=== PATIENT | female | born 1935 | race Caucasian/White ===

== ENCOUNTER 2021-04-30 10:41 | Emergency (ER) | payer MEDICAID, MEDICARE ==
--- NOTE | 2021-04-30 12:26 | EDM.PDOC ---
ED HPI GENERAL MEDICAL PROBLEM - General Chief Complaint: Upper Extremity Injury/Pain Stated Complaint: RIGHT ARM PAIN Time Seen by Provider: 04/30/21 10:48 Source of Information: Reports: Patient History Limitations: Reports: No Limitations - History of Present Illness INITIAL COMMENTS - FREE TEXT/NARRATIVE: Patient presents with a friend. They are visiting a relative here in [place]. The patient states that on Thursday she started with a throbbing pain in her right shoulder and also on the outer part of her right elbow. She has a history of osteoarthritis of both shoulders and actually has steroid injections scheduled at [facility] in her hometown of [facility]. Injections are scheduled May 08. The pain is aggravated by certain movements and positio ns. It is particularly bad at night and she states last night it kept her up all night. He has not been feverish and has not noticed any redness or swelling in the affected areas. She denies new neck pain--has had "neck pain my entire life", tingling or numbness, chest pain or shortness of breath. right forearm Pain Score (Numeric/FACES): 10 - Related Data Allergies Allergy/AdvReac Type Severity Reaction Status Date / Time fentanyl Allergy Other Verified 04/30/21 12:03 meperidine [From Demerol] Allergy Other Verified 04/30/21 12:03 promethazine [From Phenergan] Allergy Hyperactivi Verified 04/30/21 11:59 ty propoxyphene Allergy Other Verified 04/30/21 12:03 Home Meds: Home Meds Apixaban [Eliquis] 2.5 mg PO BID 04/30/21 [History] Gabapentin [Neurontin] 1 tab PO ASDIRECTED 04/30/21 [History] Hydrocodone/Acetaminophen [HYDROcodone-Acetaminophen 5-325 MG] 1 each PO Q6HR PRN #10 tab 04/30/21 [Rx] Omeprazole 20 mg PO BID 04/30/21 [History] Sertraline [Zoloft] 100 mg PO DAILY 04/30/21 [History] atorvaSTATin [Lipitor] 40 mg PO DAILY 04/30/21 [History] lisinopriL [Lisinopril] 10 mg PO DAILY 04/30/21 [History] predniSONE [Prednisone] 2 tab PO DAILY #10 tablet 04/30/21 [Rx] traZODone 100 mg PO BEDTIME 04/30/21 [History] Past Medical History HEENT History: Reports: None Cardiovascular History: Reports: Hypertension Respiratory History: Reports: Other (See Below) Gastrointestinal History: Reports: None Genitourinary History: Reports: Other (See Below) Other Genitourinary History: blood clot renal artery [employer] History: Reports: None Musculoskeletal History: Reports: Arthritis Neurological History: Reports: None Psychiatric History: Reports: Other (See Below) Endocrine/Metabolic History: Reports: None Hematologic History: Reports: None Immunologic History: Reports: None Oncologic (Cancer) History: Reports: None Dermatologic History: Reports: None - Infectious Disease History Infectious Disease History: Reports: None - Past Surgical History Head Surgeries/Procedures: Reports: None HEENT Surgical History: Reports: None Cardiovascular Surgical History: Reports: None Respiratory Surgical History: Reports: None GI Surgical History: Reports: None Female Surgical History: Reports: None Endocrine Surgical History: Reports: None Neurological Surgical History: Reports: None Musculoskeletal Surgical History: Reports: None Oncologic Surgical History: Reports: None Dermatological Surgical History: Reports: None Social & Family History - Caffeine Use Caffeine Use: Reports: None - Recreational Drug Use Recreational Drug Use: No Review of Systems - Review of Systems Review Of Systems: Comprehensive ROS is negative, except as noted in HPI. ED EXAM, GENERAL - Physical Exam Exam: See Below Exam Limited By: No Limitations General Appearance: Alert, No Apparent Distress, Other (conversive and engaging) Ears: Normal External Exam Nose: Normal Inspection Throat/Mouth: Normal Inspection Head: Atraumatic, Normocephalic Neck: Normal Inspection Respiratory/Chest: No Respiratory Distress, Lungs Clear, Normal Breath Sounds Cardiovascular: Normal Peripheral Pulses, Regular Rate, Rhythm, No Edema Back Exam: Normal Inspection Extremities: Limited Range of Motion, Other (Right shoulder without erythema swelling deformity or crepitus. Range of motion limited to 90 degrees of flexion and abduction due to pain. Right elbow without erythema swelling or deformity. Exquisite tenderness over the lateral epicondyles. Range of motion limited on pronation supination & fle). No: Joint Swelling Neurological: Alert, Oriented Psychiatric: Normal Affect, Normal Mood Skin Exam: Warm, Dry, Intact, Normal Color, No Rash Lymphatic: No Adenopathy Course - Vital Signs Last Recorded V/S: Last Vital Signs Temp 37.1 C 04/30/21 11:57 Pulse 90 04/30/21 11:57 Resp 18 04/30/21 11:57 BP 168/78 H 04/30/21 11:57 Pulse Ox 93 L 04/30/21 11:57 Departure - Departure Time of Disposition: 12:30 Disposition: Home, Self-Care 01 Condition: Good Clinical Impression: Bursitis and tendinitis of shoulder region Lateral epicondylitis Qualifiers: Laterality: right Qualified Code(s): M77.11 - Lateral epicondylitis, right elbow - Discharge Information Referrals: PCP,Not In Area [Primary Care Provider] - Additional Instructions: The following information is given to patients seen in the emergency department who are being discharged to home. This information is to outline your options for follow-up care. We provide all patients seen in our emergency department with a follow-up referral. The need for follow-up, as well as the timing and circumstances, are variable depending upon the specifics of your emergency department visit. If you don't have a primary care physician on staff, we will provide you with a referral. We always advise you to contact your personal physician following an emergency department visit to inform them of the circumstance of the visit and for follow-up with them and/or the need for any referrals to a consulting specialist. The emergency department will also refer you to a specialist when appropriate. This referral assures that you have the opportunity for follow-up care with a specialist. All of these measure are taken in an effort to provide you with optimal care, which includes your follow-up. Under all circumstances we always encourage you to contact your private physician who remains a resource for coordinating your care. When calling for follow-up care, please make the office aware that this follow-up is from your recent emergency room visit. If for any reason you are refused follow-up, please contact the Emergency Department at and asked to speak to the emergency department charge nurse. 1. Follow-up with [facility] provider for injections as previously scheduled 2. Take your steroids once daily starting as soon as you pick it up. 3. You may take your pain medication every 6 hours as needed. It may make you lightheaded and woozy. Be alert for fall risks. Best taken just before bed. 4. Return promptly to the emergency room for redness of the joints, fevers. 5. Wear sling to limit aggravatingly movements and positions Sepsis Event Note (ED) - Evaluation Sepsis Screening Result: No Definite Risk - Focused Exam Vital Signs: Vital Signs Temp Pulse Resp BP Pulse Ox 04/30/21 11:57 37.1 C 90 18 168/78 H 93 L
== END 2021-04-30 13:32 | disposition home or self-care (01) ==
LOC: MW.ED 10:41
DX: M77.11 Lateral epicondylitis, right elbow (principal); M75.51 Bursitis of right shoulder; I10 Essential (primary) hypertension; M19.90 Unspecified osteoarthritis, unspecified site; Z88.5 Allergy status to narcotic agent; Z88.8 Allergy status to other drugs, medicaments and biological substances; Z88.6 Allergy status to analgesic agent; Z79.01 Long term (current) use of anticoagulants; Z79.899 Other long term (current) drug therapy
CPT/HCPCS: 99283